=== PATIENT | male | born 1955 | race Two or more races ===

== ENCOUNTER 2021-04-16 14:42 | Emergency (ER) | payer MEDICAID ==
[~2021-04-16] VITALS: Ht 175.3 cm; Wt 79.4 kg
[2021-04-16 15:30] VITALS: BP 118/71
[2021-04-16] MEDS ORDERED: ONDANSETRON ODT 4 MG TAB PO ONE (16:15)
[2021-04-16] MEDS ORDERED: ACETAMINOPHEN/CODEINE#3 (300/30mg) TAB PO ONE (16:15)
== END 2021-04-16 21:17 | disposition home or self-care (01) ==
LOC: ER 14:42
DX: S22.42XA Multiple fractures of ribs, left side, initial encounter for closed fracture (principal); J90 Pleural effusion, not elsewhere classified; W01.0XXA Fall on same level from slipping, tripping and stumbling without subsequent striking against object, initial encounter; Y93.89 Activity, other specified; Y92.89 Other specified places as the place of occurrence of the external cause; Y99.8 Other external cause status
CPT/HCPCS: 71250; 72128; 99285; Q0162